=== PATIENT | male | born 1975 | race Caucasian/White ===

== ENCOUNTER 2019-12-07 10:57 | Emergency (ER) | payer BC ==
[~2019-12-07 10:57] MED LIST: Sodium Chloride 0.9% 1,000 ML IV ONE
[2019-12-07] MEDS ORDERED: Sodium Chloride 0.9% 10 ML Syringe FLUSH PRN (11:00)
[2019-12-07] MEDS ORDERED: Ondansetron 4 MG in Sodium Chloride 0.9% 100 ML IV ONE (11:01)
--- NOTE | 2019-12-07 11:15 | EDM.PDOC ---
ED HPI GENERAL MEDICAL PROBLEM - General Stated Complaint: FALL Time Seen by Provider: 12/07/19 10:57 Source of Information: Reports: Patient, EMS, EMS Notes Reviewed History Limitations: Reports: No Limitations - History of Present Illness INITIAL COMMENTS - FREE TEXT/NARRATIVE: Patient comes into the emergency department with complaints of a right ankle injury. EMS was contacted regarding a gentleman falling off of a grain dryer. Patient comes into the emergency department in a splint by EMS. EMS states that the patient was trying to climb a green dryer and tripped/tapped and fell approximately 8 to 10 feet and on his right ankle. Patient states he heard a crack and a snap as soon as he hit the ground. He denies hitting his head or injuring any other part of the body. He states it is an isolated injury to the right lower extremity. Patient denies or tingling of the right lower extremity however he states he cannot move his right foot patient does have diabetes mellitus type 2 and is on Lantus and metformin. Denies any recent injuries or surgical interventions. A splint was applied and 100mcg Fentanyl were given prior to arrival to the ER. Onset: Sudden Location: Reports: Lower Extremity, Right Quality: Reports: Throbbing Severity: Severe Improves with: Reports: Immobilization Worsens with: Reports: Movement Context: Reports: Activity Associated Symptoms: Reports: No Other Symptoms ED ROS GENERAL - Review of Systems Review Of Systems: Comprehensive ROS is negative, except as noted in HPI. Constitutional: Reports: No Symptoms HEENT: Reports: No Symptoms Respiratory: Reports: No Symptoms Cardiovascular: Reports: No Symptoms Endocrine: Reports: No Symptoms GI/Abdominal: Reports: No Symptoms : Reports: No Symptoms Neurological: Reports: No Symptoms Psychiatric: Reports: No Symptoms ED EXAM, GENERAL - Physical Exam Exam: See Below Exam Limited By: No Limitations General Appearance: Alert, WD/WN Eye Exam: Bilateral Eye: EOMI, PERRL Nose: Normal Inspection, Normal Mucosa Throat/Mouth: Normal Inspection, Normal Lips, Normal Oropharynx Head: Atraumatic, Normocephalic Neck: Normal Inspection, Supple, Non-Tender, Full Range of Motion Respiratory/Chest: No Respiratory Distress, Lungs Clear, Normal Breath Sounds, No Accessory Muscle Use, Chest Non-Tender Cardiovascular: Normal Peripheral Pulses, Regular Rate, Rhythm, No Edema Back Exam: Normal Inspection, Full Range of Motion Extremities: No Pedal Edema, Normal Capillary Refill, Leg Pain (right ankle: deformity noted, CMS intacted, pulses palpable, ROM limited ) Neurological: Alert, Oriented Psychiatric: Normal Affect, Normal Mood Skin Exam: Cool, Diaphoretic, Pallor Course - Orders/Labs/Meds Orders: Active Orders 24 hr Category Date Time Status EKG Documentation Completion [RC] STAT Care 12/07/19 11:00 Active Oxygen Therapy [RC] ASDIRECTED Care 12/07/19 11:30 Active COMPREHENSIVE METABOLIC PN,CMP [CHEM] Stat Lab 12/07/19 11:07 Received TROPONIN I [CHEM] Stat Lab 12/07/19 11:07 Received Sodium Chloride 0.9% [Saline Flush] Med 12/07/19 11:00 Active 10 ml FLUSH ASDIRECTED PRN Peripheral IV Insertion Adult [OM.PC] Stat Oth 12/07/19 11:00 Ordered Medication Orders Sodium Chloride (Saline Flush) 10 ml FLUSH ASDIRECTED PRN PRN Reason: Keep Vein Open Labs: Laboratory Tests 12/07/19 12/07/19 Range/Units 11:07 11:07 WBC 9.6 (4.0-10.0) x10^3/uL RBC 4.47 L (4.5-6.0) x10^6/uL Hgb 12.6 L (14.0-18.0) g/dL Hct 39.0 L (40.0-52.0) % MCV 87.2 (78.0-93.0) fL MCH 28.2 (26.0-32.0) pg MCHC 32.3 (32.0-36.0) g/dL RDW Coeff of Shania 14.7 (10.0-15.0) % Plt Count 315 (130-400) x10^3/uL Neut % (Auto) 58.9 (50.0-80.0) % Lymph % (Auto) 27.2 (25.0-50.0) % Yancey % (Auto) 11.3 H (2.0-11.0) % Eos % (Auto) 2.5 (0.0-4.0) % Baso % (Auto) 0.1 L (0.2-1.2) % PT 9.9 L (10.0-12.8) SEC INR 0.9 L (2.0-3.5) Meds: Medications Generic Name Dose Route Start Last Admin Trade Name Freq PRN Reason Stop Dose Admin Sodium Chloride 10 ml 12/07/19 11:00 Saline Flush FLUSH ASDIRECTED PRN Keep Vein Open Discontinued Medications Generic Name Dose Route Start Last Admin Trade Name Freq PRN Reason Stop Dose Admin Ondansetron HCl 4 mg/ Sodium 102 mls @ 400 mls/hr 12/07/19 11:01 Chloride IV 12/07/19 11:16 ONETIME ONE Ondansetron HCl 4 mg 12/07/19 11:28 Zofran IVPUSH 12/07/19 11:29 ONETIME ONE Departure - Departure Time of Disposition: 11:05 Disposition: DC/Tfer to Acute Hospital 02 Condition: Fair Clinical Impression: Right ankle joint deformity, Shock Tibia fracture Qualifiers: Encounter type: initial encounter Tibia location: distal Fracture type: closed Fracture morphology: other fracture Laterality: right Qualified Code(s): S82.391A - Other fracture of lower end of right tibia, initial encounter for closed fracture Fibula fracture Qualifiers: Encounter type: initial encounter Fibula location: distal physis (incl. Salter- Arredondo) Fracture alignment: displaced Laterality: right Qualified Code(s): S89.301A - Unspecified physeal fracture of lower end of right fibula, initial encounter for closed fracture - Discharge Information *PRESCRIPTION DRUG MONITORING PROGRAM REVIEWED*: Not Applicable *COPY OF PRESCRIPTION DRUG MONITORING REPORT IN PATIENT LISANDRA: Not Applicable Referrals: PCP,Unknown [Primary Care Provider] - Forms: Interfacility Transfer [facility] Sepsis Event Note - Focused Exam Date Exam was Performed: 12/07/19 Time Exam was Performed: 11:38 - My Orders Last 24 Hours: My Active Orders 12/07/19 11:00 EKG Documentation Completion [RC] STAT Sodium Chloride 0.9% [Saline Flush] 10 ml FLUSH ASDIRECTED PRN Peripheral IV Insertion Adult [OM.PC] Stat 12/07/19 11:07 COMPREHENSIVE METABOLIC PN,CMP [CHEM] Stat TROPONIN I [CHEM] Stat 12/07/19 11:30 Oxygen Therapy [RC] ASDIRECTED - Assessment/Plan Last 24 Hours: My Active Orders 12/07/19 11:00 EKG Documentation Completion [RC] STAT Sodium Chloride 0.9% [Saline Flush] 10 ml FLUSH ASDIRECTED PRN Peripheral IV Insertion Adult [OM.PC] Stat 12/07/19 11:07 COMPREHENSIVE METABOLIC PN,CMP [CHEM] Stat TROPONIN I [CHEM] Stat 12/07/19 11:30 Oxygen Therapy [RC] ASDIRECTED Assessment:: 1. fall 2. Right ankle injury Plan: 1. Labs completed in the ER. Results reviewed with the patient 2. 2nd IV initiated in the emergency department, Pt arrived with 1 IV. 3. IV fluids bolus 1L provided due to diaphoresis, pale, cool skin and BP 102 ( Pt states BP normally 140's-150's checked last week) 4. Pain medication given for severe pain prior to arrival 100mcg IV- 2/10 after medication given 5. Zofran 4mg IV given in the ER to help with nausea 6. Contact with [facility] ER regarding transfer to higher level of care for surgical intervention. 7. Splinting intake from EMS and pulses present at Discharge. 8. Patient and family are agreeable to the above plan of care 9. All questions and concerns were addressed with the patient and family prior to discharge 10. Did request EMS to complete EKG prior to arrival to receiving facility. 11. O2 applied in ER due to O2 saturations low and pale/diaphoretic appearance
[2019-12-07] MEDS ORDERED: Ondansetron 4 MG/2 ML SDV IVPUSH ONE (11:28)
--- NOTE | 2019-12-07 11:32 | CR ---
[id number] RAD/RAD Ankle Right 3V Min EXAM: 3 VIEWS RIGHT ANKLE. INDICATION: FALL WITH DEFOMITY. COMPARISON: None. DISCUSSION: There is multi fragmentary fracture involving the distal right fibular metaphysis. There also a multi fragmentary fracture involving the distal right tibia with multiple fracture fragments. There is separation of the distal syndesmosis with lateral dislocation of the tibiotalar joint. Extensive soft tissue defects and large right ankle joint effusion. IMPRESSION: 1. Fracture dislocation of the right ankle as described above. Tyler Finney DO 12/07/19 1131 Thank you for allowing us to participate in the care of your patient.
[2019-12-07 11:38] LABS: CHLORIDE,CL 103 mmol/L (98-107); SODIUM,NA 139 mmol/L (136-145)
== END 2019-12-07 11:15 | disposition short-term general hospital (02) ==
LOC: VM.ED 10:57
DX: S82.391A Other fracture of lower end of right tibia, initial encounter for closed fracture (principal); S89.301A Unspecified physeal fracture of lower end of right fibula, initial encounter for closed fracture; M21.961 Unspecified acquired deformity of right lower leg; R57.9 Shock, unspecified; E11.9 Type 2 diabetes mellitus without complications; Z79.4 Long term (current) use of insulin; W01.198A Fall on same level from slipping, tripping and stumbling with subsequent striking against other object, initial encounter
CPT/HCPCS: 73610-RT; 80053; 84484; 85025; 85610; 99285-25

== ENCOUNTER 2020-03-11 16:16 | Emergency (ER) | payer BC ==
--- NOTE | 2020-03-11 17:17 | EDM.PDOC ---
ED HPI GENERAL MEDICAL PROBLEM - General Stated Complaint: right ankle pain swelling Time Seen by Provider: 03/11/20 17:02 Source of Information: Reports: Patient History Limitations: Reports: No Limitations - History of Present Illness INITIAL COMMENTS - FREE TEXT/NARRATIVE: Patient comes emergency department today from home with complaints of increasing pain and swelling to his right lower extremity. This patient had an ORIF right ankle following a fracture in December. He kind of chronically has some swelling to his bilateral lower extremities but the swelling is gotten quite a bit worse to his right lower extremity the last few days. He has had some increased tension tightness and some pain. He denies any recent falls trauma or injury to the right lower extremity. No fever no chills. No paresthesias of his upper or lower extremities. He has stopped wearing the walking boot for the past 2 weeks as directed. He was supposed to get an x-ray following the removal of the boot although he did not. He has no shortness of breath or difficulty breathing. His weight is been quite steady for many years. He is a [employer] by trade and is physically active and on his feet quite a bit all day especially the last few weeks. Right Ankle Pain Score (Numeric/FACES): 2 - Related Data Allergies Allergy/AdvReac Type Severity Reaction Status Date / Time No Known Allergies Allergy Verified 03/11/20 17:47 Review of Systems - Review of Systems Review Of Systems: Comprehensive ROS is negative, except as noted in HPI. ED EXAM, GENERAL - Physical Exam Exam: See Below Exam Limited By: No Limitations General Appearance: Alert, WD/WN, No Apparent Distress Respiratory/Chest: No Respiratory Distress, Lungs Clear Cardiovascular: Normal Peripheral Pulses, Regular Rate, Rhythm Peripheral Pulses: 2+: Radial (L), Radial (R), Posterior Tibial (L), Posterior Tibial (R), Dorsalis Pedis (L), Dorsalis Pedis (R) GI/Abdominal: Normal Bowel Sounds, Soft (Male) Exam: Deferred Rectal (Males) Exam: Deferred Back Exam: Normal Inspection, Full Range of Motion Extremities: Pedal Edema, Joint Swelling (There is quite a bit of swelling on the right lower extremity from about the tib-fib region all the way down to his toes. There is no increased warmth erythema induration. It is about 2+ pitting. There is no breaks in the skin. He has very similar lower extremity edema on the left side about 1+ that is not quite as prevalent but definitely there. States that he chronically has swelling to his lower extremities the swelling in his left lower extremity is about normal for him but the stuff on the right is quite a bit worse last few days.). No: Increased Warmth Neurological: Alert, Oriented, Normal Cognition, No Motor/Sensory Deficits Psychiatric: Normal Affect, Normal Mood Skin Exam: Warm, Dry, Intact, Normal Color, No Rash Course - Vital Signs Last Recorded V/S: Last Vital Signs Temp 36.1 C 03/11/20 17:44 Pulse 87 03/11/20 17:44 Resp 16 03/11/20 17:44 BP 154/90 H 03/11/20 17:44 Pulse Ox 98 03/11/20 17:44 - Radiology Interpretation Free Text/Narrative:: X-ray of the right ankle per radiology shows superimposing domestic fixator screw is fractured 5 mm medially to the lateral fixation plate. The fracture fragments appear to be in good position and near anatomic alignment. - Re-Assessments/Exams Free Text/Narrative Re-Assessment/Exam: 03/11/20 17:56 I relayed to the patient that he most likely has this increased swelling and discomfort due to the recent fracture of 1 of the screws in his fixation plate. At this time we will put him back in his walking boot Rice therapy elevation and have him contact his orthopedist on Saturday for following. He is comfortable with this plan his questions are answered. Departure - Departure Time of Disposition: 17:50 Disposition: Home, Self-Care 01 Clinical Impression: Hardware failure - Discharge Information Instructions: Pain Medicine Instructions, [id number] Referrals: Catie Bill DO [Primary Care Provider] - Additional Instructions: Tylenol and or Ibuprofen as needed for pain. Start wearing your boot to the right foot at all times. Okay to take off to shower. Weight bearing as tolerated to the right ankle. Rest ice and elevate the extremity above the level of your heart as much as possible. Contact your ortho MD on saturday by phone for update of the findings of the fractured screw in the repair of the ankle. Return to the ED if new or worsening symptoms. Sepsis Event Note - Focused Exam Vital Signs: Vital Signs Temp Pulse Resp BP Pulse Ox 03/11/20 17:44 36.1 C 87 16 154/90 H 98 Date Exam was Performed: 03/11/20 Time Exam was Performed: 17:51 - Assessment/Plan Assessment:: Fracture of hardware screw to the right previous ankle fracture. No fracture displacement. Increased pain and swelling to the right ankle foot.
--- NOTE | 2020-03-11 17:23 | CR ---
[id number] RAD/RAD Ankle Right 3V Min Exam: RAD Ankle Right 3V Min Indication:RECENT SURGERY. INCREASED PAIN AND SWELLING. Comparison: December 07, 2019. Discussion: Postsurgical change from fibular diaphysis fracture ORIF. Placement of a lateral fixation plate and numerous fixation screws, including bicortical and syndesmotic screws. Superior most syndesmotic screw is fractured approximately 5 mm medial to the plate. Fibular fracture fragments remain in near-anatomic alignment. There are multiple fracture fragments relating over the anterior recess of the tibiotalar articulation seen on lateral view. Largest measure 8 mm in diameter. AP view demonstrates a 9 x 5 mm fragment in the medial gutter of the ankle mortise is well. Soft tissue swelling throughout the lower leg extending into the foot. Linear lucency in the anterior tubercle of the calcaneus on lateral view. Fracture possible. This portion of the calcaneus was not well-visualized on comparison examination from December 07, 2019. Impression: Superiormost syndesmotic fixation screw is fractured 5 mm medial to the lateral fixation plate. Other findings are described above. Bo Almendarez MD 03/11/20 [id number] Thank you for allowing us to participate in the care of your patient.
== END 2020-03-11 18:00 | disposition home or self-care (01) ==
LOC: VM.ED 16:16
DX: T84.196A Other mechanical complication of internal fixation device of bone of right lower leg, initial encounter (principal)
CPT/HCPCS: 73610-RT; 99283

== ENCOUNTER 2020-03-16 21:14 | Emergency (ER) | payer BC ==
[2020-03-16] MEDS ORDERED: Lidocaine 1% 30 ML SDV INJECT ONE (21:30)
[2020-03-16] MEDS ORDERED: Diphtheria,Pertussis(Acell),Tetanus Vaccine 0.5 ML Syringe IM ONE (21:55)
--- NOTE | 2020-03-16 21:55 | EDM.PDOC ---
ED HPI GENERAL MEDICAL PROBLEM - General Chief Complaint: Laceration Stated Complaint: LACERATION TO R HAND Time Seen by Provider: 03/16/20 21:30 Source of Information: Reports: Patient History Limitations: Reports: No Limitations - History of Present Illness INITIAL COMMENTS - FREE TEXT/NARRATIVE: Patient comes in urgency department today with complaints of a laceration to his right pad of his hand. Just prior to arrival the patient was working on his combine when he was trying to get unstuck with some corn stocks when a corn stock cut the pad surface of his right thumb in the metacarpal region. He is able to flex and extend at the MCP and IP joint. He is unsure of when his last tetanus shot was. The rest of the right hand is atraumatic. right hand Pain Score (Numeric/FACES): 2 - Related Data Allergies Allergy/AdvReac Type Severity Reaction Status Date / Time No Known Allergies Allergy Verified 03/16/20 23:07 Home Meds: Home Meds Penicillin V Potassium 250 mg PO BID 03/16/20 [History] Simvastatin 40 mg PO DAILY 03/16/20 [History] modafiniL [Modafinil] 200 mg PO DAILY 03/16/20 [History] Past Medical History - Past Surgical History GI Surgical History: Reports: Other (See Below) Other GI Surgeries/Procedures: splenectomy Musculoskeletal Surgical History: Reports: Other (See Below) Other Musculoskeletal Surgeries/Procedures:: right ankle surgery December 2019 ED ROS GENERAL - Review of Systems Review Of Systems: Comprehensive ROS is negative, except as noted in HPI. ED EXAM, SKIN/RASH Exam: See Below Exam Limited By: No Limitations General Appearance: Alert, WD/WN, No Apparent Distress Respiratory/Chest: No Respiratory Distress Cardiovascular: Normal Peripheral Pulses Peripheral Pulses: 2+: Radial (L), Radial (R) Extremities: No: Normal Inspection (Exam is limited to the right hand. On the palm surface of the right hand and the pad area of the thumb where the metacarpal region is. There is a 3.5cm distal to proximal partial-thickness laceration that minimally extends in the very middle of it onto the subcutaneous tissue otherwise does not. It is very clean laceration. The patient is able to flex and extend all the joints of the hand and wrist appropriately. CMS intact appropriately.) Neurological: Alert, Oriented, Normal Cognition, No Motor/Sensory Deficits Psychiatric: Normal Affect Skin: Warm, Dry, Intact ED SKIN PROCEDURES - Laceration/Wound Repair Right Hand Appearance: Subcutaneous (Most of it is actually superficial but the very middle of the laceration does minimally extend to the subcutaneous tissue but no further.), Linear, Clean Distal NVT: Neuro & Vascular Intact Anesthetic Type: Local Local Anesthesia - Lidocaine (Xylocaine): 1% Plain Skin Prep: Chlorhexidine (Hibiciens), Saline Saline Irrigation (cc's): 200 Exploration/Debridement/Repair: Wound Explored, In a Bloodless Field, Explored to Base, No Foreign Material Found Closed with: Sutures Lac/Wound length In cm: 3.5 Suture Size: 4-0 # of Sutures: 1 (Goal running stitch with excellent skin approximation.) Suture Type: Nylon Course - Vital Signs Last Recorded V/S: Last Vital Signs Temp 37.2 C 03/16/20 21:14 Pulse 90 03/16/20 21:14 Resp 16 03/16/20 21:14 BP 150/80 H 03/16/20 21:14 Pulse Ox 97 03/16/20 21:14 - Orders/Labs/Meds Orders: Active Orders 24 hr Category Date Time Status Vaccines to be Administered [RC] PER UNIT ROUTINE Care 03/16/20 21:55 Active Meds: Medications Discontinued Medications Generic Name Dose Route Start Last Admin Trade Name Sera PRN Reason Stop Dose Admin Diphtheria/Tetanus/Acell Pertussis 0.5 ml 03/16/20 21:55 03/16/20 22:05 Adacel IM 03/16/20 21:56 0.5 ml .ONCE ONE Administration Lidocaine HCl 30 ml 03/16/20 21:30 03/16/20 21:45 Xylocaine-Mpf 1% INJECT 03/16/20 21:31 5 ml ONETIME ONE Administration - Re-Assessments/Exams Free Text/Narrative Re-Assessment/Exam: 03/16/20 Tetanus was updated. Departure - Departure Time of Disposition: 21:55 Disposition: Home, Self-Care 01 Clinical Impression: Laceration of right palm Qualifiers: Encounter type: initial encounter Qualified Code(s): S61.411A - Laceration without foreign body of right hand, initial encounter - Discharge Information Instructions: Sutured Wound Care, [id number] Referrals: Catie Bill DO [Primary Care Provider] - Forms: ED Department Discharge Additional Instructions: Wash the hand twice daily with soap and water. Bacitracin bandage until healed. Sutures out in 10 days. Watch for signs of infection. You may wash your hands with water running over it but do not allow it to soak in water. Return to the ED if new or worsening symptoms. Follow up as needed. Sutures out in 10 days. - My Orders Last 24 Hours: My Active Orders 03/16/20 21:55 Vaccines to be Administered [RC] PER UNIT ROUTINE - Assessment/Plan Last 24 Hours: My Active Orders 03/16/20 21:55 Vaccines to be Administered [RC] PER UNIT ROUTINE Assessment:: 3.5 cm laceration on the right thumb pad of the palm of the hand. Barely into the subcutaneous tissue. Plan: Wash the hand twice daily with soap and water. Bacitracin bandage until healed. Sutures out in 10 days. Watch for signs of infection. You may wash your hands with water running over it but do not allow it to soak in water. Return to the ED if new or worsening symptoms. Follow up as needed. Sutures out in 10 days.
== END 2020-03-16 22:10 | disposition home or self-care (01) ==
LOC: VM.ED 21:14
DX: S61.411A Laceration without foreign body of right hand, initial encounter (principal); Z79.899 Other long term (current) drug therapy; Z23 Encounter for immunization; W22.8XXA Striking against or struck by other objects, initial encounter; Y99.0 Civilian activity done for income or pay
CPT/HCPCS: 12002; 90471; 90715; 99282; J2001

== ENCOUNTER 2020-09-09 12:22 | Emergency (ER) | payer BC ==
[2020-09-09] MEDS ORDERED: Sodium Chloride 0.9% 10 ML Syringe FLUSH PRN (12:27)
[2020-09-09] MEDS ORDERED: fentaNYL 50 MCG/ML SDV IVPUSH ONE (12:39)
[2020-09-09] MEDS ORDERED: Ondansetron 4 MG/2 ML SDV IV ONE (12:39)
[2020-09-09 12:55] LABS: CHLORIDE,CL 95 mmol/L (98-107); SODIUM,NA 133 mmol/L (136-145)
[2020-09-09 13:00] LABS: PTT,PARTIAL THROMBOPLSTIN TIME 23.6 SEC (25.6-32.8)
--- NOTE | 2020-09-09 13:00 | CR ---
[id number] RAD/RAD Chest PA or AP 1V EXAM: RAD Chest PA or AP 1V INDICATION: TRAUMA CODE. COMPARISON: None. DISCUSSION: Cardiomediastinal silhouette is normal in size and contour. No infiltrate, effusion, pneumothorax, or edema. No radiographic evidence of acute fracture. IMPRESSION: No acute cardiopulmonary abnormality. Tyler Finney DO 09/09/20 2605 Thank you for allowing us to participate in the care of your patient.
--- NOTE | 2020-09-09 13:06 | CR ---
[id number] RAD/RAD Pelvis 1-2V Exam: RAD Pelvis 1-2V Indication:TRAUMA CODE. Comparison: No prior imaging for comparison. Discussion/Impression: No radiographically evident acute fracture or dislocation. Bilateral femoroacetabular osteoarthritis. Abnormal mineralization and the right inferior pubic ramus adjacent to which there is a 44 x 30 mm area of abnormal mineralization projecting over the right obturator foramen. Combination of findings suggests an osseous lesion. At this point, pelvis CT would be of benefit. Bo Almendarez MD 09/09/20 [id number] Thank you for allowing us to participate in the care of your patient.
--- NOTE | 2020-09-09 13:44 | CT ---
[id number] CT/CT Head WO IV EXAM: CT Head WO IV CLINICAL DATA: TRAUMA COMPARISON: NO PREVIOUS SIMILAR EXAM IS AVAILABLE FOR COMPARISON. FINDINGS: There is no mass or mass effect. There is no hemorrhage or hydrocephalus. There are no extra-axial fluid collections. There are no sites of abnormal attenuation. IMPRESSION: NO PLAIN CT EVIDENCE OF ACUTE INTRACRANIAL PROCESS. Kumar Avelar MD 09/09/20 [id number] Thank you for allowing us to participate in the care of your patient.
--- NOTE | 2020-09-09 13:47 | CT ---
[id number] CT/CT Cervical Spine WO IV Exam: CT Cervical Spine WO IV Clinical Data: TRAUMA COMPARISON: NO PREVIOUS SIMILAR EXAM IS AVAILABLE FINDINGS: No fracture or subluxation is seen The prevertebral soft tissues are unremarkable There is a normal appearance of the C1-C2 articulation IMPRESSION: NO FRACTURE OR SUBLUXATION Kumar Avelar MD 09/09/20 [id number] Thank you for allowing us to participate in the care of your patient.
[2020-09-09] MEDS ORDERED: Iopamidol 612 MG/ML 100 ML Bottle IVPUSH ONE (13:49)
[2020-09-09] MEDS ORDERED: Bupivacaine 0.5% 30 ML SDV INJECT PRN (13:50)
[2020-09-09] MEDS ORDERED: Lidocaine 1% with EPINEPHrine 1:100,000 20 ML MDV INFILT STA (13:50)
--- NOTE | 2020-09-09 13:52 | CT ---
[id number] CT/CT Chest Abdomen Pelvis W IV Exam: CT Chest Abdomen Pelvis W IV Clinical Data: TRAUMA COMPARISON: CORRELATION IS MADE WITH THE EARLIER PLAIN FILMS FINDINGS: There is no pulmonary parenchymal contusion or pleural effusion The great vessels are intact There is no mediastinal mass or adenopathy There is a fatty liver There is hepatomegaly The spleen is not seen The adrenals, aorta, kidneys, and pancreas otherwise are unremarkable The pelvis shows no mass or adenopathy There is a calcified matrix producing 5.5 cm soft tissue mass adjacent to the right ischial tuberosity There is a question of an old right inferior pubic ramus fracture There is a smaller similar finding involving the posterior neck of the right hip. 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
[2020-09-09] MEDS ORDERED: ceFAZolin 1 GM Vial IVPUSH ONE (14:25)
[2020-09-09] MEDS ORDERED: ceFAZolin 1 GM Vial ONE (14:48)
--- NOTE | 2020-09-09 14:49 | CR ---
[id number] RAD/RAD Hand Right 3V Exam: RAD Hand Right 3V Indication:BASE OF THUMB, QUESTION FOREIGN BODY IN LACERATION. Comparison: No prior imaging for comparison. Discussion/Impression: 2 mm linear radiopaque object in the subcutaneous soft tissues of the thenar eminence in the volar aspect of the hand. This is adjacent to the laceration. No fracture or dislocation. Bo Almendarez MD 09/09/20 1447 Thank you for allowing us to participate in the care of your patient.
--- NOTE | 2020-09-09 15:28 | EDM.PDOC ---
ED HPI GENERAL MEDICAL PROBLEM - General Stated Complaint: TRAUMA CODE Time Seen by Provider: 09/09/20 12:22 Source of Information: Reports: Patient History Limitations: Reports: No Limitations - History of Present Illness INITIAL COMMENTS - FREE TEXT/NARRATIVE: Patient comes emergency department today from home with complaints of a fall while he was putting up his [place] lights. Just prior to arrival the patient was just getting down off his road from putting up [place] lights when he lost his balance and fell landing on his what he believes is his hand and his face. He is pretty sure that he lost consciousness because he does not remember getting off the ground or really going into the house. He complains of some pain on his right frontal scalp as well as his left cheek and his right hand. He has no other head pain neck pain or back pain. No visual acuity changes. No weakness dizziness lightheadedness. No chest pain or shortness of breath or difficulty breathing. No abdominal pain no nausea or vomiting. No paresthesias of his upper or lower extremities. No change in the functionality of his upper or lower extremities. He has not noticed any blood in his urine. No hematuria dysuria or urinary frequency. No black or tarry stools. He has been ambulatory without any concerns. He has no loss of bowel or bladder. And no saddle anesthesia. - Related Data Allergies Allergy/AdvReac Type Severity Reaction Status Date / Time No Known Allergies Allergy Verified 03/16/20 23:07 Home Meds: Home Meds modafiniL [Modafinil] 200 mg PO DAILY 03/16/20 [History] cephALEXin [Keflex] 500 mg PO QID #20 capsule 09/09/20 [Rx] Past Medical History Cardiovascular History: Reports: High Cholesterol Endocrine/Metabolic History: Reports: Diabetes, Type II - Past Surgical History GI Surgical History: Reports: Other (See Below) Other GI Surgeries/Procedures: splenectomy Musculoskeletal Surgical History: Reports: Other (See Below) Other Musculoskeletal Surgeries/Procedures:: right ankle surgery December 2019 Review of Systems - Review of Systems Review Of Systems: Comprehensive ROS is negative, except as noted in HPI. ED EXAM, GENERAL - Physical Exam Exam: See Below Exam Limited By: No Limitations General Appearance: Alert, WD/WN, No Apparent Distress Eye Exam: Bilateral Eye: EOMI, PERRL Ears: Normal External Exam, Normal Canal, Hearing Grossly Normal, Normal TMs Nose: Normal Inspection, Normal Mucosa, No Blood Throat/Mouth: Normal Inspection, Normal Lips, Normal Teeth, Normal Gums, Normal Oropharynx, Normal Voice, No Airway Compromise Head: Normocephalic. No: Atraumatic (In just the midline of the frontal forehead in the hairline there is a linear laceration anterior to posterior about 2 cm in length that is superficial. There is no bony deformity step-offs contusions abrasions or crepitus. Just above the left eye lateral canthus of the left lateral eyebrow there is a stellate superficial laceration approximately 2 cm in length. There is no subcutaneous emphysema bruising swelling ecchymosis. Rest of the head is atraumatic) Neck: Normal Inspection, Supple, Non-Tender, Full Range of Motion. No: Tender Lateral, Tender Midline Respiratory/Chest: No Respiratory Distress, Lungs Clear, Normal Breath Sounds, No Accessory Muscle Use, Chest Non-Tender Cardiovascular: Normal Peripheral Pulses, Regular Rate, Rhythm, No Murmur Peripheral Pulses: 2+: Radial (L), Radial (R), Posterior Tibial (L), Posterior Tibial (R), Dorsalis Pedis (L), Dorsalis Pedis (R) GI/Abdominal: Normal Bowel Sounds, Soft, Non-Tender, Pelvis Stable (Male) Exam: Deferred Rectal (Males) Exam: Deferred Back Exam: Normal Inspection, Full Range of Motion. No: Paraspinal Tenderness, Vertebral Tenderness (There is no bruising swelling ecchymosis bony deformity step-offs contusions abrasions or other signs of trauma to the posterior.) Extremities: Normal Range of Motion, Non-Tender, No Pedal Edema, Normal Capillary Refill. No: Normal Inspection (Inspection of his upper or lower extremities other than the right hand. At the base of the thumb of the right hand in the fat pad area of the thumb there is a rather large laceration that is about 5 cm in length gaping by about 1-1/2 cm. That extends minimally into the subcutaneous tissue and not into the fat pad. He is able to flex and extend his thumb and all of his fingers and joints appropriately to the right hand. The rest of the hand is atraumatic.) Neurological: Alert, Oriented, CN II-XII Intact, Normal Cognition, Normal Gait, Normal Reflexes, No Motor/Sensory Deficits Psychiatric: Normal Affect, Normal Mood Skin Exam: Warm, Dry, Intact, Normal Color, No Rash ED TRAUMA PROCEDURES - Laceration/Wound Repair Right Other Lac/Wound Length In cm: 2.2 (in the hairline upper forehead. ) Appearance: Subcutaneous, Linear Distal NVT: Neuro & Vascular Intact Anesthetic Type: Local Local Anesthesia - Lidocaine (Xylocaine): 1% with EPI Local Anesthesia - Bupivicaine (Marcaine): 0.5% Plain Local Anesthetic Volume: 4cc Skin Prep: Chlorhexidine (Hibiciens), Saline Saline Irrigation (cc's): 30 Exploration/Debridement/Repair: Wound Explored, In a Bloodless Field, No Foreign Material Found Closed With: Sutures Suture Size: 6-0 Suture Type: Nylon # of Sutures: 4 Sterile Dressing Applied: Nurse Tetanus Status Addressed: Yes Left Lateral Face Lac/Wound Length In cm: 2 Appearance: Subcutaneous, Stellate, Irregular, Mildly Contaminated Distal NVT: Neuro & Vascular Intact Anesthetic Type: Local Local Anesthesia - Lidocaine (Xylocaine): 0.5% with EPI Local Anesthesia - Bupivicaine (Marcaine): 0.5% Plain Local Anesthetic Volume: 2cc Skin Prep: Chlorhexidine (Hibiciens), Saline Saline Irrigation (cc's): 30 Exploration/Debridement/Repair: Wound Explored, In a Bloodless Field, Explored to Base Closed With: Sutures Suture Size: 6-0 Suture Type: Nylon (This was a rather complicated repair as it was quite stellate in nature although the wound edges were well approximated.) Right Hand Lac/Wound Length In cm: 5 (On the thenar eminence of the right palm of the hand.) Appearance: Subcutaneous, Linear, Irregular, Mildly Contaminated Distal NVT: Neuro & Vascular Intact Anesthetic Type: Local Local Anesthesia - Lidocaine (Xylocaine): 0.5% with EPI Local Anesthesia - Bupivicaine (Marcaine): 0.5% Plain Local Anesthetic Volume: Other (10) Skin Prep: Chlorhexidine (Hibiciens), Saline Saline Irrigation (cc's): 500 Exploration/Debridement/Repair: Wound Explored, In a Bloodless Field, Explored to Base, Foreign Material Removed, Wound Margins Revised, Multiple Flaps Aligned Closed With: Sutures Suture Size: 4-0 Suture Type: Nylon Course - Orders/Labs/Meds Orders: Active Orders 24 hr Category Date Time Status DRUG SCREEN, URINE [URCHEM] Stat Lab 09/09/20 12:28 Ordered UA RFX JACKIE AND CULT IF INDIC [URIN] Stat Lab 09/09/20 12:28 Ordered Peripheral IV Insertion Adult [OM.PC] Stat Oth 09/09/20 12:27 Ordered Labs: Laboratory Tests 09/09/20 09/09/20 09/09/20 Range/Units 12:30 12:30 12:30 WBC 9.8 (4.0-10.0) x10^3/uL RBC 4.90 (4.5-6.0) x10^6/uL Hgb 14.0 (14.0-18.0) g/dL Hct 41.3 (40.0-52.0) % MCV 84.3 (78.0-93.0) fL MCH 28.6 (26.0-32.0) pg MCHC 33.9 (32.0-36.0) g/dL RDW Coeff of Shania 13.9 (10.0-15.0) % Plt Count 439 H D (130-400) x10^3/uL Neut % (Auto) 40.5 L (50.0-80.0) % Lymph % (Auto) 47.1 (25.0-50.0) % Collier % (Auto) 10.8 (2.0-11.0) % Eos % (Auto) 1.3 (0.0-4.0) % Baso % (Auto) 0.3 (0.2-1.2) % PT 9.2 L (9.5-12.3) SEC INR 0.8 L (2.0-3.5) APTT 23.6 L (25.6-32.8) SEC Sodium 133 L (136-145) mmol/L Potassium 4.0 (3.5-5.1) mmol/L Chloride 95 L (98-107) mmol/L Carbon Dioxide 22 (21-32) mmol/L Anion Gap 20.0 (10-20) mmol/L BUN 16 (7-18) mg/dL Creatinine 0.9 (0.70-1.30) mg/dL Est Cr Clr Drug Dosing TNP Estimated GFR (MDRD) > 60 Glucose 272 H (74-106) mg/dL Lactic Acid (0.4-2.0) mmol/L Calcium 9.1 (8.5-10.1) mg/dL Corrected Calcium 9.42 (8.5-10.1) mg/dL Total Bilirubin 0.4 (0.2-1.0) mg/dL AST 23 (15-37) U/L ALT 38 (16-63) U/L Alkaline Phosphatase 99 (46-116) U/L C-Reactive Protein 1.2 H (<=0.9) mg/dL Total Protein 7.6 (6.4-8.2) g/dL Albumin 3.6 (3.4-5.0) g/dL Globulin 4.0 Albumin/Globulin Ratio 0.90 09/09/20 Range/Units 12:30 WBC (4.0-10.0) x10^3/uL RBC (4.5-6.0) x10^6/uL Hgb (14.0-18.0) g/dL Hct (40.0-52.0) % MCV (78.0-93.0) fL MCH (26.0-32.0) pg MCHC (32.0-36.0) g/dL RDW Coeff of Shania (10.0-15.0) % Plt Count (130-400) x10^3/uL Neut % (Auto) (50.0-80.0) % Lymph % (Auto) (25.0-50.0) % Collier % (Auto) (2.0-11.0) % Eos % (Auto) (0.0-4.0) % Baso % (Auto) (0.2-1.2) % PT (9.5-12.3) SEC INR (2.0-3.5) APTT (25.6-32.8) SEC Sodium (136-145) mmol/L Potassium (3.5-5.1) mmol/L Chloride (98-107) mmol/L Carbon Dioxide (21-32) mmol/L Anion Gap (10-20) mmol/L BUN (7-18) mg/dL Creatinine (0.70-1.30) mg/dL Est Cr Clr Drug Dosing Estimated GFR (MDRD) Glucose (74-106) mg/dL Lactic Acid 1.7 (0.4-2.0) mmol/L Calcium (8.5-10.1) mg/dL Corrected Calcium (8.5-10.1) mg/dL Total Bilirubin (0.2-1.0) mg/dL AST (15-37) U/L ALT (16-63) U/L Alkaline Phosphatase (46-116) U/L C-Reactive Protein (<=0.9) mg/dL Total Protein (6.4-8.2) g/dL Albumin (3.4-5.0) g/dL Globulin Albumin/Globulin Ratio Meds: Medications Discontinued Medications Generic Name Dose Route Start Last Admin Trade Name Freq PRN Reason Stop Dose Admin Bupivacaine HCl 30 ml 09/09/20 13:50 09/09/20 14:38 Marcaine 0.5% INJECT 30 ml ASDIRECTED PRN Administration Other Cefazolin Sodium 2 gm 09/09/20 14:25 09/09/20 14:38 Ancef IVPUSH 09/09/20 14:26 2 gm ONETIME ONE Administration Cefazolin Sodium Confirm 09/09/20 14:48 09/09/20 15:27 Ancef Administered 09/09/20 14:49 Not Given Dose 1 gm .ROUTE .STK-MED ONE Fentanyl 50 mcg 09/09/20 12:39 09/09/20 12:51 Fentanyl IVPUSH 09/09/20 12:40 50 mcg ONETIME ONE Administration Iopamidol 100 ml 09/09/20 13:49 09/09/20 13:50 Isovue-300 (61%) IVPUSH 09/09/20 13:50 100 ml ONETIME ONE Administration Lidocaine/Epinephrine 20 ml 09/09/20 13:50 09/09/20 14:38 Xylocaine 1% With Epinephrine 1:100,000 INFILT 09/09/20 13:51 20 ml ONETIME STA Administration Ondansetron HCl 4 mg 09/09/20 12:39 09/09/20 12:51 Zofran IV 09/09/20 12:40 4 mg ONETIME ONE Administration Sodium Chloride 10 ml 09/09/20 12:27 Saline Flush FLUSH ASDIRECTED PRN Keep Vein Open - Radiology Interpretation Free Text/Narrative:: 1 view chest x-ray per radiology shows no acute cardiopulmonary abnormality. 1 view pelvis no radiographic evidence of acute fracture dislocation bilateral femoral acetabular osteoarthritis. There is an abnormal mineralization right inferior pubic ramus adjacent to which there is an area of abnormal mineralization projecting over the right obturator foramen. Combination of findings and José Antonio osseous lesions. Pelvis CT would benefit. CT cervical spine per radiology no fracture or subluxation. CT of the head per radiology shows no plain CT evidence of acute intracranial process. CT chest abdomen pelvis due to the mechanism of injury as well as the osseous finding on the pelvis shows no acute injury. Questions of myositis ossification versus dual chondroma of the right ischial tuberosity similar findings involving the right femoral neck correlations with previous studies and follow- ups are needed. This patient does have a known history of Hodgkin's lymphoma. X-ray of the right hand no fracture or dislocation. 2 mm linear radiopaque object in the subcutaneous soft tissue of the thenar eminence of the volar aspect of the hand. This is adjacent to the laceration. - Re-Assessments/Exams Free Text/Narrative Re-Assessment/Exam: 09/09/20 Due to the mechanism of injury a trauma code was activated upon the patient's arrival and was present shortly thereafter. C-Collar was placed due to the mechanism of injury. X-rays and labs ordered. Fentanyl for pain and Zofran for prophylactic nausea. His C-spine was negative for any fracture. He was able to flex and extend and rotate his head without any problems. CT of his head was negative. X-ray of his chest was negative. Pelvis with some chronic findings but nothing acute. I then turned my attention to repairing the laceration. Please see the procedure note. The patient was given 2 g Ancef prophylactic due to the injury to the thenar damage to the right palm. 09/09/20 P primary and secondary surveys did not find or identify any new concerns. There is rather extensive and long repair of the laceration to the palm of the right hand. I will have him follow-up with hand surgery due to the area of where the laceration was. Discharge instructions as below are explained to the patient he was comfortable with this plan and his questions are answered. Departure - Departure Time of Disposition: 15:24 Disposition: Home, Self-Care 01 Clinical Impression: Abnormal CT scan, pelvis Concussion Qualifiers: Encounter type: initial encounter Loss of consciousness presence/duration: [facility] LOC Qualified Code(s): S06.0X0A - Concussion without loss of consciousness, initial encounter Hand laceration Qualifiers: Encounter type: initial encounter Foreign body presence: with foreign body Laterality: right Qualified Code(s): S61.421A - Laceration with foreign body of right hand, initial encounter Facial laceration Qualifiers: Encounter type: initial encounter Qualified Code(s): S01.81XA - Laceration without foreign body of other part of head, initial encounter Scalp laceration Qualifiers: Encounter type: initial encounter Qualified Code(s): S01.01XA - Laceration without foreign body of scalp, initial encounter - Discharge Information Prescriptions: cephALEXin [Keflex] 500 mg PO QID #20 capsule Instructions: Laceration Care, Adult, Concussion, Adult, Cephalexin tablets or capsules, Probiotics Referrals: Catie Bill DO [Primary Care Provider] - Additional Instructions: Tylenol and or Ibuprofen as needed for pain discomfort. Wash the lacerations twice daily with soap and water. Bacitracin and bandage until healed. Watch for signs of infection. Cephalexin 1 capsule 4 times a day for the next 5 [address] RX [address] [facility]. Sutures on the face out in 5 days. Sutures to the hand out in 10 days. Take it easy the next few days with your concussion. Decrease lights sounds. Lots of fluids. See hand surgery in [place] early next week [facility] for follow up with the area of injury to the palm of your hand. [phone] Return to the ED if new or worsening symptoms. Follow up with Dr. Bill about the chronic findings on the CT of the pelvis. - My Orders Last 24 Hours: My Active Orders 09/09/20 12:27 Peripheral IV Insertion Adult [OM.PC] Stat 09/09/20 12:28 DRUG SCREEN, URINE [URCHEM] Stat UA RFX JACKIE AND CULT IF INDIC [URIN] Stat - Assessment/Plan Last 24 Hours: My Active Orders 09/09/20 12:27 Peripheral IV Insertion Adult [OM.PC] Stat 09/09/20 12:28 DRUG SCREEN, URINE [URCHEM] Stat UA RFX JACKIE AND CULT IF INDIC [URIN] Stat
== END 2020-09-09 15:40 | disposition home or self-care (01) ==
LOC: VM.ED 12:22
DX: S01.01XA Laceration without foreign body of scalp, initial encounter (principal); S01.81XA Laceration without foreign body of other part of head, initial encounter; S61.421A Laceration with foreign body of right hand, initial encounter; S06.0X0A Concussion without loss of consciousness, initial encounter; R93.5 Abnormal findings on diagnostic imaging of other abdominal regions, including retroperitoneum; E11.9 Type 2 diabetes mellitus without complications; W01.0XXA Fall on same level from slipping, tripping and stumbling without subsequent striking against object, initial encounter
CPT/HCPCS: 12002; 12013; 70450; 71045; 71260; 72125; 72170; 73130-RT; 74177; 80053; 83605; 85025; 85610; 85730; 86140; 99284-25; J0690; J2405; J3010; J3490; Q9967